=== PATIENT | female | born 1990 | race Caucasian/White ===

== ENCOUNTER 2021-11-16 20:09 | Emergency (ER) | payer OTHER ==
[~2021-11-16] VITALS: Ht 160 cm; Wt 55.3 kg
[2021-11-16] MEDS ORDERED: VIBRAMYCIN100 MG PO (20:51)
== END 2021-11-16 20:55 | disposition home or self-care (01) ==
LOC: ED 20:09
DX: L02.412 Cutaneous abscess of left axilla (principal); Z88.0 Allergy status to penicillin; Z91.018 Allergy to other foods

== ENCOUNTER 2021-11-22 14:29 | Emergency (ER) | payer OTHER ==
[~2021-11-22] VITALS: Wt 49.9 kg
[~2021-11-22 14:29] MED LIST: VIBRAMYCIN100 MG PO
== END 2021-11-22 15:06 | disposition home or self-care (01) ==
LOC: ED 14:29
DX: Z20.2 Contact with and (suspected) exposure to infections with a predominantly sexual mode of transmission (principal); Z88.0 Allergy status to penicillin; Z91.018 Allergy to other foods

== ENCOUNTER 2022-01-29 03:58 | Emergency (ER) | payer OTHER ==
[~2022-01-29] VITALS: Ht 160 cm; Wt 53.1 kg
[2022-01-29 04:28] LABS: BASO # 0.1 10*3/uL (0.0-0.1); BASO % 0.8 % (0.0-1.0); EOS # 0.1 10*3/uL (0.0-0.4); EOS % 1.5 % (1.0-4.0); HEMATOCRIT 38.1 % (37.0-47.0); LYMPH % 39.9 % (27.0-41.0); MEAN CELL VOLUME 92.9 fl (81.0-99.0); MEAN CORPUSCULAR HGB 30.2 pg (27.0-31.0); MEAN CORPUSCULAR HGB CONC 32.5 g/dl (33.0-37.0); MEAN PLATELET VOLUME 10.4 fl (9.6-12.3); MONO # 0.8 10*3/uL (0.1-1.0); MONO % 10.3 % (3.0-9.0); NEUT # 3.5 10*3/uL (2.3-7.9); NEUT % 47.2 % (47.0-73.0); PLATELET COUNT AUTOMATED 150 10*3/uL (130-400); RED CELL DISTRI WIDTH 13.1 % (0-14.5); WHITE BLOOD COUNT 7.4 10*3/uL (4.8-10.8)
[2022-01-29 04:42] LABS: ALKALINE PHOSPHATASE 65 U/L (45-117); BUN 15 mg/dl (7-24); CHLORIDE 110 mmol/L (98-107); CREATININE 0.54 mg/dL (0.55-1.02); POTASSIUM 4.6 mmol/L (3.5-5.1); SGOT/AST 30 IU/L (3-35); SGPT/ALT 52 U/L (12-78); SODIUM 137 mmol/L (136-145); TOTAL PROTEIN 7.2 gm/dL (6.4-8.2)
[2022-01-29] MEDS ORDERED: ZOFRAN4 MG PO (05:35)
== END 2022-01-29 05:34 | disposition home or self-care (01) ==
LOC: ED 03:58
PROVIDERS: Internal Medicine
DX: R11.2 Nausea with vomiting, unspecified (principal); R19.7 Diarrhea, unspecified; Z88.0 Allergy status to penicillin; Z91.018 Allergy to other foods